=== PATIENT | male | born 1975 | race Caucasian/White ===

== ENCOUNTER 2017-01-25 21:12 | Emergency (ER) | payer SELFPAY ==
[2017-01-25 21:12] VITALS: BMI 33.9
[2017-01-25 21:36] VITALS: RESP 18; TEMP 99
--- NOTE | 2017-01-25 21:51 | ED PDOC ---
"Arrival/HPI - General Time Seen by Provider: 01/25/17 21:24 Historian: Patient - History of Present Illness Narrative History of Present Illness (Text): 01/25/17 21:36 41 year old male, no significant pmh, nkda, doesn't wear contacts, no eye surgery, complaining of headache and rt. eye seeing shadow x 2 weeks. Pt. stated that he has been having rt. eye pressure and seeing halos with the pain on and off for the past 2 weeks, associated with the headache, no dizziness, no change in vision, no numbness or tingling, no night sweat, no dizziness, no rash , no weakness, no palpitation, no other medical or psychological complaints. Past Medical History - Provider Review Nursing Documentation Reviewed: Yes - Past Medical History Past Medical History: No Previous - Psychiatric Hx Psychophysiologic Disorder: Yes Hx Depression: Yes Hx Substance Use: No - Past Surgical History Past Surgical History: No Previous - Suicidal Assessment Feels Threatened In Home Enviroment: No Family/Social History - Physician Review Nursing Documentation Reviewed: Yes Family/Social History: Unknown Family HX Smoking Status: Light Smoker < 10 Cigarettes Daily Hx Alcohol Use: Yes Frequency of alcohol use: Daily Hx Substance Use: No Allergies/Home Meds Allergies/Adverse Reactions: Allergies No Known Allergies Allergy (Verified 12/04/13 21:29) Review of Systems - Review of Systems Constitutional: absent: Fatigue, Fevers Eyes: Vision Changes, Eye Pain. absent: Photophobia ENT: absent: Hearing Changes Respiratory: absent: SOB, Cough Cardiovascular: absent: Chest Pain, Palpitations Gastrointestinal: absent: Abdominal Pain, Nausea, Vomiting Musculoskeletal: absent: Arthralgias, Back Pain Skin: absent: Rash, Pruritis Neurological: Headache. absent: Dizziness, Focal Weakness, Gait Changes, Speech Changes Physical Exam Vital Signs Reviewed: Yes Vital Signs Temp Pulse Resp BP Pulse Ox 01/25/17 23:46 85 18 145/95 H 99 01/25/17 21:33 99 F 125 H 18 145/97 H 97 Temperature: Afebrile Blood Pressure: Hypertensive Pulse: Tachycardic Respiratory Rate: Normal Appearance: Positive for: Well-Appearing, Non-Toxic Pain Distress: Severe Mental Status: Positive for: Alert and Oriented X 3 - Systems Exam Head: Present: Atraumatic, Normocephalic, Other (+ttp on the maxillary sinus, no temporal artery tenderness, no jaw claudication). No: Tenderness, Ecchymosis , Abrasion Pupils: Present: PERRL, Other (Eyes: rt. eye IOP 27-30 vs. lt eye pressure is 22 , bilateral pupils approx. 5mm with no conjunctivitis, no periorbital swelling, rt. eye stained with flurosein strip show no uptakes, full range of extraocular movement without limtiation, peripheral vision intact, rt. eye vision 20/25 without correction vs. lt eye vision 20/20, no hyphema. ) Extroacular Muscles: Present: EOMI Conjunctiva: Present: Normal Mouth: Present: Moist Mucous Membranes Neck: Present: Normal Range of Motion Respiratory/Chest: Present: Clear to Auscultation, Good Air Exchange. No: Respiratory Distress, Accessory Muscle Use Cardiovascular: Present: Regular Rate and Rhythm, Normal S1, S2. No: Murmurs Abdomen: Present: Normal Bowel Sounds. No: Tenderness, Distention, Peritoneal Signs Back: Present: Normal Inspection Upper Extremity: Present: Normal Inspection. No: Cyanosis, Edema Lower Extremity: Present: Normal Inspection. No: Edema Neurological: Present: GCS=15, CN II-XII Intact, Speech Normal, Motor Func Grossly Intact, Normal Cerebellar Funct, Gait Normal, Memory Normal, Other ( normal finger to nose test, normal heel to torres test. ) Skin: Present: Warm, Dry, Normal Color. No: Rashes Psychiatric: Present: Alert, Oriented x 3, Normal Insight, Normal Concentration Medical Decision Making ED Course and Treatment: 01/25/17 22:01 -labs -CT head/facial with orbital -IV reglan/benadryl/fluid -Opthalmologist Dr. Reese paged. 01/25/17 23:30 -Ct Head show no acute findings -Ct facial show partial opacification of the maxillary sinuses -IV toradol and nasal canula oxygen 4L ordered for him with augmentin. -Labs are non-significant 01/26/17 00:05 -Pain resolved with the medications given -I spoke to Dr. Holman which he is covering for Dr. 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 Reese's [facility] Office. -Discharge home with augmentin, claritin d24, flonase, motrin, follow up with Dr. Holman this morning 9am as the opthalmologist is expecting you, follow up with your own pmd and ENT within 2 days, return to the ER for any new or worsening signs or symptoms. - Lab Interpretations Lab Results: 01/25/17 22:10 01/25/17 22:10 Lab Results 01/25/17 22:10: Sodium 146, Potassium 4.4, Chloride 106, Carbon Dioxide 29, Anion Gap 15, BUN 7, Creatinine 0.8, Est GFR ( Amer) > 60, Est GFR (Non- Af Amer) > 60, Random Glucose 122 H, Calcium 9.1, Magnesium 2.2, Total Bilirubin 0.6, AST 43, ALT 63 H, Alkaline Phosphatase 84, Total Protein 8.4 H, Albumin 4.4, Globulin 4.0, Albumin/Globulin Ratio 1.1 01/25/17 22:10: WBC 9.3, RBC 4.99, Hgb 17.3, Hct 48.8, MCV 97.8, MCH 34.7, MCHC 35.5, RDW 13.3, Plt Count 271, MPV 9.7, Gran % 49.1 L, Lymph % (Auto) 42.3 H, Navarro % (Auto) 6.1 H, Eos % (Auto) 2.2, Baso % (Auto) 0.3, Gran # 4.58, Lymph # 4.0 H, Navarro # 0.6, Eos # 0.2, Baso # 0.03 - RAD Interpretation Radiology Orders: 01/25/17 21:54 HEAD W/O CONTRAST [CT] Stat ORBITS/ FACIALS W/O CONTRAST [CT] Stat CT Head: FINDINGS: There is a focal area of cutaneous nodular thickening in the upper left parietal region. No intracranial hemorrhage. No intracranial edema. No evidence of infarct. The sinuses and mastoid air cells are clear. IMPRESSION: No acute findings. LINNEA SOSA | Final Radiology Report Thank you for allowing us to participate in the care of your patient. Dictated and Authenticated by: Bibi Nicholas MD 01/25/2017 11:15 PM Eastern Time ([place] & [place]) CT Orbit/facial: There is partial opacification of the maxillary sinuses. It could be chronic or alternatively represent mild acute sinusitis. Clinical correlation is recommended. Probable mucus retention cyst left maxillary sinus. The osseous structures are normal. The orbital globes appear grossly normal. IMPRESSION: Mild sinus disease as above. Thank you for allowing us to participate in the care of your patient. 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 - Medication Orders Current Medication Orders: Discontinued Medications Amoxicillin/Clavulanate Potassium (Augmentin 875 Mg-125 Mg Tab) 1 tab PO STAT STA PRN Reason: Protocol Stop: 01/25/17 23:37 Last Admin: 01/25/17 23:47 Dose: 1 tab Diphenhydramine HCl (Benadryl) 50 mg IVP STAT STA Stop: 01/25/17 21:57 Last Admin: 01/25/17 22:10 Dose: 50 mg IVP Administration Document 01/25/17 22:10 GMD (Rec: 01/25/17 22:10 [id number]) Charges for Administration # of IVP Administrations 1 Sodium Chloride (Sodium Chloride 0.9%) 500 mls @ 999 mls/hr IV .Q31M STA Stop: 01/25/17 22:26 Last Admin: 01/25/17 22:10 Dose: 999 mls/hr eMAR Start Stop Document 01/25/17 22:10 GMD (Rec: 01/25/17 22:10 [id number]) Intravenous Solution Start Date 01/25/17 Start Time 22:10 End Date 01/25/17 End time 22:40 Total Infusion Time 30 Ketorolac Tromethamine (Toradol) 30 mg IVP STAT STA Stop: 01/25/17 23:31 Last Admin: 01/25/17 23:42 Dose: 30 mg MAR Pain Assessment Document 01/25/17 23:42 SS (Rec: 01/25/17 23:42 SS [id number]) Pain Reassessment Is this a pain reassessment? No Sleep Is patient sleeping during reassessment? 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 Disposition/Present on Arrival - Present on Arrival Any Indicators Present on Arrival: No History of DVT/PE: No History of Uncontrolled Diabetes: No Urinary Catheter: No History of Decub. Ulcer: No History Surgical Site Infection Following: None - Disposition Have Diagnosis and Disposition been Completed?: Yes Diagnosis: Elevated IOP, Sinusitis, Headache Disposition: HOME/ ROUTINE Disposition Time: 23:37 Patient Plan: Discharge Condition: IMPROVED Prescriptions: Amoxicillin/Clavulanate [Augmentin 875 MG-125 MG] 1 tab PO BID #14 tab Fluticasone Propionate [Flonase Allergy Relief] 1 spray NS DAILY #1 dev Ibuprofen [Motrin Tab] 800 mg PO TID PRN #21 tab PRN Reason: Other Loratadine/Pseudoephedrine [Claritin-D 24 Hour Tablet] 1 each PO DAILY #7 tab.er.24h Referrals: at [facility] [Outside] - Follow up with primary Salvador Taveras, [Non-Staff] - Follow up with primary Cristóbal Gutierrez DO [Staff Provider] - Follow up with primary Mayco Holman MD [Staff Provider] - Follow up with primary Gautam Ram MD [Staff Provider] - Follow up with primary Mark Reese [Staff Provider] - Follow up with primary Forms: WORK NOTE"
[2017-01-25] MEDS ORDERED: Sodium Chloride 0.9% 500 ML IV STA (21:56)
[2017-01-25] MEDS ORDERED: DiphenhydrAMINE 50 mg/ml Inj IVP STA (21:56)
[2017-01-25 22:26] LABS: BASO # 0.03 K/mm3 (0.0-2.0); BASO % 0.3 % (0.0-3.0); EOS # 0.2 (0.0-0.7); EOS % 2.2 % (1.5-5.0); GRAN # 4.58 (1.4-6.5); GRAN % 49.1 % (50.0-68.0); HEMATOCRIT 48.8 % (42.0-52.0); LYMPH % 42.3 % (22.0-35.0); MEAN CELL VOLUME 97.8 fl (80.0-105.0); MEAN CORPUSCULAR HEMOGLOBIN 34.7 pg (25.0-35.0); MEAN CORPUSCULAR HGB CONC 35.5 g/dl (31.0-37.0); MEAN PLATELET VOLUME 9.7 fl (7.0-11.0); MONO # 0.6 (0.1-0.6); MONO % 6.1 % (1.0-6.0); RED CELL DISTRIBUTION WIDTH 13.3 % (11.5-14.5); WHITE BLOOD COUNT 9.3 10^3/ul (4.5-11.0)
[2017-01-25 22:36] LABS: ALB/GLOB RATIO 1.1 (1.1-1.8); ALKALINE PHOSPHATASE 84 U/L (38-126); ALT/SGPT 63 U/L (7-56); AST/SGOT 43 U/L (17-59); BILIRUBIN,TOTAL 0.6 mg/dL (0.2-1.3); BLOOD UREA NITROGEN 7 mg/dL (7-21); CALCIUM 9.1 mg/dL (8.4-10.5); CARBON DIOXIDE 29 mmol/L (21-33); CHLORIDE 106 mmol/L (98-107); GFR AFRICAN-AMERICAN > 60; GLUCOSE,RANDOM 122 mg/dL (70-110); MAGNESIUM 2.2 mg/dL (1.7-2.2); POTASSIUM 4.4 mmol/L (3.6-5.0); SODIUM 146 mmol/L (132-148); TOTAL PROTEIN 8.4 g/dL (5.8-8.3)
--- NOTE | 2017-01-25 23:15 | CT ---
EXAM: CT Head Without Intravenous Contrast EXAM DATE/TIME: 01/25/2017 9:54 PM CLINICAL HISTORY: 41 years old, male; Pain; Headache; Patient HX: Headache x 2 weeks TECHNIQUE: Axial computed tomography images of the head/brain without intravenous contrast. All CT scans at this facility use one or more dose reduction techniques, viz.: automated exposure control; ma/kV adjustment per patient size (including targeted exams where dose is matched to indication; i.e. head); or iterative reconstruction technique. COMPARISON: No relevant prior studies available. FINDINGS: There is a focal area of cutaneous nodular thickening in the upper left parietal region. No intracranial hemorrhage. No intracranial edema. No evidence of infarct. The sinuses and mastoid air cells are clear. IMPRESSION: No acute findings.
--- NOTE | 2017-01-25 23:29 | CT ---
EXAM: CT Orbits Without Intravenous Contrast EXAM DATE/TIME: 01/25/2017 9:54 PM CLINICAL HISTORY: 41 years old, male; Pain; Eye pain; Right; Patient HX: Headache TECHNIQUE: Axial computed tomography images of the orbits without intravenous contrast. All CT scans at this facility use one or more dose reduction techniques, viz.: automated exposure control; ma/kV adjustment per patient size (including targeted exams where dose is matched to indication; i.e. head); or iterative reconstruction technique. Coronal and sagittal reformatted images were created and reviewed. COMPARISON: CT - HEAD W/O CONTRAST 2017-01-25 22:41 FINDINGS: There is partial opacification of the maxillary sinuses. It could be chronic or alternatively represent mild acute sinusitis. Clinical correlation is recommended. Probable mucus retention cyst left maxillary sinus. The osseous structures are normal. The orbital globes appear grossly normal. IMPRESSION: Mild sinus disease as above.
[2017-01-25] MEDS ORDERED: Amoxicillin-Clav 875-125 mg Tab PO STA (23:36)
[2017-01-25 23:47] VITALS: BP 145/95; PULSE 85; O2SAT 99
== END 2017-01-26 00:20 | disposition home or self-care (01) ==
LOC: ED 21:12
DX: J32.9 Chronic sinusitis, unspecified (principal); R51 Headache; H40.059 Ocular hypertension, unspecified eye; F17.210 Nicotine dependence, cigarettes, uncomplicated
CPT/HCPCS: 70450; 70480; 80053; 83735; 85025; 85027; 96374; 96375; 99285; J1200; J1885; J2765; J7040

== ENCOUNTER 2018-04-05 10:13 | Outpatient (CLI) | payer OTHER | END 2018-04-05 10:14 | disposition home or self-care (01) | LOC: LAB 10:13 ==

== ENCOUNTER 2018-06-04 08:45 | Outpatient (CLI) | payer OTHER | END 2018-06-04 08:46 | disposition home or self-care (01) | LOC: LAB 08:45 ==